=== PATIENT | female | born 1960 | race American Indian/Alaskan Native ===

== ENCOUNTER 2017-12-28 10:49 | Outpatient (CLI) | payer BC ==
--- NOTE | 2017-12-28 14:28 | Fluoroscopy Report ---
UPPER GI AIR CONTRAST: History: Epigastric pain, history of gastric sleeve surgery. FINDINGS: The patient ingested barium without difficulty. The esophageal contour is normal. There are no ulcerations or filling defects seen in the esophagus. There is normal esophageal motility. There is no hiatal hernia or reflux. Gastric sleeve surgical changes are identified. There is no evidence for ulceration or extravasation of contrast agent. The gastric cavity is within normal limits otherwise. There are no ulcerations or filling defects in the stomach. The duodenal bulb and duodenal sweep appear normal. IMPRESSION: Negative double contrast upper GI examination.
== END 2017-12-28 10:50 | disposition home or self-care (01) ==
LOC: FLUORO 10:49
PROVIDERS: ATTEND Specialist
DX: R10.13 Epigastric pain (principal); Z98.84 Bariatric surgery status
CPT/HCPCS: 74247